=== PATIENT | male | born 1985 | race Hispanic/Latino ===

== ENCOUNTER 2017-05-18 13:13 | Emergency (ER) | payer SELFPAY ==
[2017-05-18 14:24] LABS: BASOPHILS % (AUTO) 0.1 % (0.0-5.0); HEMATOCRIT 44.9 % (42-54); LYMPHOCYTES % (AUTO) 8.7 % (21.0-51.0); MEAN CORPUSCULAR HEMOGLOBIN 28.7 pg (27.0-33.0); MEAN CORPUSCULAR HGB CONC 33.3 g/dL (32.0-36.0); MEAN CORPUSCULAR VOLUME 86.4 fL (79-99); MONOCYTES % (AUTO) 6.6 % (3.0-13.0); NEUTROPHILS % (AUTO) 84.6 % (40.0-77.0); PLATELET COUNT (AUTO) 179 K/uL (130-400); RED CELL DISTRIBUTION WIDTH 14.6 % (11.0-15.5); WHITE BLOOD COUNT (AUTO) 17.7 K/uL (4.8-10.8)
[2017-05-18 14:33] LABS: CREATININE 1.3 mg/dL (0.5-1.5); POTASSIUM 3.8 mmol/L (3.5-5.1)
[2017-05-18] MEDS ORDERED: LIDOCAINE HCL-MPF 1% 2ML VIAL ONE (14:58)
[2017-05-18] MEDS ORDERED: CEFTRIAXONE SODIUM 1 GM ONE (14:59)
== END 2017-05-18 15:19 | disposition home or self-care (01) ==
LOC: EDH 13:13
DX: L03.116 Cellulitis of left lower limb (principal)
CPT/HCPCS: 36415; 80048; 85025; 93971; 96372; 99285; J0696; J3490

== ENCOUNTER 2018-07-09 07:58 | Emergency (ER) | payer SELFPAY ==
[2018-07-09] MEDS ORDERED: CEFTRIAXONE SODIUM 1 GM ONE (08:58)
[2018-07-09] MEDS ORDERED: LIDOCAINE HCL-MPF 1% 2ML VIAL ONE (08:58)
[2018-07-09] MEDS ORDERED: DEXAMETHASONE SOD PHOSPHATE 10MG/ML 1ML VIAL ONE (08:58)
== END 2018-07-09 09:11 | disposition home or self-care (01) ==
LOC: EDH 07:58
DX: J20.9 Acute bronchitis, unspecified (principal); F12.10 Cannabis abuse, uncomplicated
CPT/HCPCS: 96372; 99283; J0696; J1100; J3490

== ENCOUNTER 2020-12-18 10:05 | Emergency (ER) | payer OTHER ==
[~2020-12-18] VITALS: Ht 182.9 cm; Wt 186.0 kg
[2020-12-18 10:13] VITALS: BP 170/89
[2020-12-18] MEDS ORDERED: ONDANSETRON 4MG INJ ONE (11:28)
[2020-12-18] MEDS ORDERED: 0.9%NACL 1000ML 1,000 ML IV ONE (11:41)
[2020-12-18 11:47] LABS: HEMATOCRIT 45.6 % (42-54); MEAN CORPUSCULAR HEMOGLOBIN 28.7 pg (27.0-33.0); MEAN CORPUSCULAR HGB CONC 32.9 g/dL (32.0-36.0); MEAN CORPUSCULAR VOLUME 87.2 fL (79-99); PLATELET COUNT (AUTO) 148 K/uL (130-400); RED BLOOD CELL COUNT(AUTO) 5.23 MIL/uL (4.50-6.20); RED CELL DISTRIBUTION WIDTH 14.1 % (11.0-15.5); WHITE BLOOD COUNT (AUTO) 5.4 K/uL (4.8-10.8)
[2020-12-18 11:56] LABS: CREATININE 1.2 mg/dL (0.5-1.5)
[2020-12-18 12:06] LABS: ALBUMIN 3.6 g/dL (3.5-5.0); BILIRUBIN,TOTAL 0.5 mg/dL (0.2-1.0); TOTAL PROTEIN, SERUM 7.4 g/dL (6.0-8.3)
[2020-12-18 13:09] LABS: BAND NEUTROPHILS % (MANUAL) 9 % (0-2); BASOPHILS % (MANUAL) 1 % (0-2); LYMPHOCYTES % (MANUAL) 15 % (22-44); MAN.DIFF COMMENT-IMPRESSION MANUAL DIFFERENTIAL; MONOCYTES % (MANUAL) 3 % (2-9); PLATELET MORPHOLOGY COMMENT ADEQUATE; SEGMENTED NEUTROPHILS % 72 % (40-70)
[2020-12-18] MEDS ORDERED: IVER3TAB PO (15:02)
[2020-12-18] MEDS ORDERED: ASPI-1012 PO (15:02)
[2020-12-18] MEDS ORDERED: ALBUHFA IH (15:02)
[2020-12-18] MEDS ORDERED: ACETAMINOPHEN 500 MG TABLET ONE (15:44)
[2020-12-18 15:56] VITALS: BP 148/79
[2020-12-18] MEDS ORDERED: SOLU-MEDROL 125MG VIAL ONE (16:03)
[2020-12-18] MEDS ORDERED: PRED20TA3 PO (16:15)
[2020-12-18] MEDS ORDERED: ONDA4TAB4 PO (16:15)
[2020-12-18 18:27] VITALS: BP 134/74
== END 2020-12-18 18:28 | disposition home or self-care (01) ==
LOC: EDH 10:05
DX: U07.1 COVID-19 (principal); E66.01 Morbid (severe) obesity due to excess calories; Z68.43 Body mass index [BMI] 50.0-59.9, adult; Z79.82 Long term (current) use of aspirin; Z79.899 Other long term (current) drug therapy
CPT/HCPCS: 36415; 71045; 80053; 85025; 87635; 87804 ×2; 96374; 96375; 99284; C9803; J2405; J2930; J7030